=== PATIENT | male | born 1955 | race Caucasian/White ===

== ENCOUNTER 2018-03-29 09:06 | Inpatient (IN) | payer MEDICAID ==
[~2018-03-29] VITALS: Ht 162.6 cm; Wt 72.6 kg
[2018-03-29] MEDS ORDERED: SODIUM CHLORIDE 0.9% 1000ML BAG (SEPSIS BOLUS) IV ONE (10:45)
[2018-03-29 10:58] LABS: HEMATOCRIT. 38.6 % (42.0-52.0); HEMOGLOBIN. 13.5 g/dL (14.0-18.0); MEAN CORPUSCULAR HEMOGLOBIN 30.7 pg (28.0-32.0); MEAN CORPUSCULAR VOLUME 87.8 fL (80.0-94.0); PLATELET 134 x1000/uL (130-400); RED CELL DISTRIBUTION WIDTH 13.7 % (11.6-14.6)
[2018-03-29 11:09] LABS: CHLORIDE 105 mEq/L (98-107)
[2018-03-29 11:15] LABS: INR 1.2; PROTHROMBIN TIME 12.1 sec (9.1-11.1)
[2018-03-29] MEDS ORDERED: VANCOMYCIN 1 G PREMIX 200 ML IV ONE (11:45)
[2018-03-29] MEDS ORDERED: METRONIDAZOLE 500 MG PREMIX 100 ML IV ONE (11:45)
[2018-03-29] MEDS ORDERED: CEFTRIAXONE 1 G PREMIX 50 ML IV ONE (11:45)
[2018-03-29 11:58] LABS: PLATELET ESTIMATE NORMAL
[2018-03-29 13:05] LABS: CLARITY URINE CLOUDY (CLEAR); COLOR URINE ORANGE (YELLOW); KETONES URINE TRACE (NEGATIVE); LEUKOCYTE ESTERASE URINE TRACE (NEGATIVE); NITRITE URINE NEGATIVE (NEGATIVE); OCCULT BLOOD URINE 1+ (NEGATIVE); PROTEIN URINE 1+ (NEGATIVE); SPECIFIC GRAVITY URINE 1.019 (1.005-1.030)
[2018-03-29] MEDS ORDERED: CLONIDINE 0.1MG TABLET PO PRN ×2 (14:30→18:30)
[2018-03-29] MEDS ORDERED: DIAZEPAM 5 MG/ML 2ML CPJ IV PRN (14:30)
[2018-03-29] MEDS ORDERED: SODIUM CHLORIDE 0.9% 1,000 ML IV ONE (14:45)
[2018-03-29] MEDS ORDERED: CLINDAMYCIN XX SCH (16:00)
[2018-03-29] MEDS ORDERED: CEFTRIAXONE XX SCH (16:00)
[2018-03-29] MEDS ORDERED: VANCOMYCIN 1 G PREMIX 200 ML IV NR (18:00)
[2018-03-29] MEDS ORDERED: ONDANSETRON HCL 4MG/2ML INJ IV PRN (18:30)
[2018-03-29] MEDS ORDERED: IBUPROFEN 400MG TABLET PO PRN (18:30)
[2018-03-29] MEDS ORDERED: POTASSIUM CHLORIDE 20MEQ TABLET SR PO PRN (18:30)
[2018-03-29 22:30] VITALS: BP 110/66
[2018-03-30] VITALS: BP 93/53
[2018-03-30] MEDS ORDERED: DIAZEPAM 5 MG/ML 2ML CPJ IV PRN ×2 (01:45)
[2018-03-30] MEDS ORDERED: CLONIDINE 0.1MG TABLET PO PRN (01:45)
[2018-03-30] MEDS ORDERED: CLONIDINE 0.3MG TABLET PO PRN (01:45)
[2018-03-30] MEDS: SODIUM CHLORIDE 0.9% 1,000 ML IV SCH ×3 (03:25→18:44)
[2018-03-30] MEDS: CLINDAMYCIN 600MG PREMIX 50 ML IV SCH ×3 (03:31→18:44)
[2018-03-30 04:00] VITALS: BP 95/56
[2018-03-30 07:00] LABS: HEMATOCRIT. 33.5 % (42.0-52.0); HEMOGLOBIN. 11.6 g/dL (14.0-18.0); MEAN CORPUSCULAR HEMOGLOBIN 30.7 pg (28.0-32.0); MEAN PLATELET VOLUME 9.5 fl (7.4-10.4); PLATELET 129 x1000/uL (130-400); RED BLOOD CELL COUNT 3.77 mill/uL (4.7-6.1)
[2018-03-30 08:00] VITALS: BP 117/70
[2018-03-30 08:29] LABS: HEPATITIS B SURFACE ANTIGEN NEGATIVE
[2018-03-30] MEDS: CEFTRIAXONE 1 G PREMIX 50 ML IV SCH (08:34)
[2018-03-30] MEDS: MULTIVITAMINS,THER W-MINERALS TABLET PO SCH (08:35)
[2018-03-30] MEDS: METHADONE HCL 10MG TABLET PO SCH (11:25)
[2018-03-30 12:00] VITALS: BP 130/67
[2018-03-30 14:01] LABS: PLATELET ESTIMATE SLIGHTLY DECREASED
[2018-03-30 16:00] VITALS: BP 121/69
[2018-03-30 18:26] LABS: *AMPHETAMINES SCREEN URINE NEGATIVE (NEGATIVE); *BARBITURATES SCREEN URINE NEGATIVE (NEGATIVE); *BENZODIAZEPINES SCREEN URINE NEGATIVE (NEGATIVE)
[2018-03-30 18:27] LABS: *COCAINE SCREEN URINE NEGATIVE (NEGATIVE); CANNABINOID URINE SCREEN PRESUMTIVE POSITIVE (NEGATIVE); METHADONE URINE SCREEN PRESUMTIVE POSITIVE (NEGATIVE); OPIATES URINE SCREEN PRESUMTIVE POSITIVE (NEGATIVE); PHENCYCLIDINE URINE SCREEN NEGATIVE (NEGATIVE)
[2018-03-30 20:00] VITALS: BP 115/64
[2018-03-31] VITALS: BP 120/68
[2018-03-31] MEDS: CLINDAMYCIN 600MG PREMIX 50 ML IV SCH ×2 (02:32→11:45)
[2018-03-31] MEDS: SODIUM CHLORIDE 0.9% 1,000 ML IV SCH ×2 (02:32→09:00)
[2018-03-31 04:00] VITALS: BP 126/57
[2018-03-31 08:00] VITALS: BP 121/58
[2018-03-31 08:04] LABS: BASOPHILS % 0.3 % (0.0-2.0); EOSINOPHILS % 1.4 % (0.0-5.0); HEMATOCRIT. 33.2 % (42.0-52.0); HEMOGLOBIN. 11.6 g/dL (14.0-18.0); LYMPHOCYTES % 7.9 % (20.0-50.0); MEAN CORPUSCULAR HEMOGLOBIN 30.9 pg (28.0-32.0); MEAN CORPUSCULAR VOLUME 88.7 fL (80.0-94.0); MEAN PLATELET VOLUME 9.7 fl (7.4-10.4); MONOCYTES % 5.9 % (2.0-8.0); NEUTROPHILS % 84.5 % (40.0-76.0); PLATELET 120 x1000/uL (130-400); RED BLOOD CELL COUNT 3.75 mill/uL (4.7-6.1)
[2018-03-31] MEDS: CEFTRIAXONE 1 G PREMIX 50 ML IV SCH (08:58)
[2018-03-31] MEDS: METHADONE HCL 10MG TABLET PO SCH (08:59)
[2018-03-31] MEDS: MULTIVITAMINS,THER W-MINERALS TABLET PO SCH (08:59)
[2018-03-31 09:46] LABS: PHOSPHORUS 2.1 mg/dL (2.5-4.9)
[2018-03-31 10:06] LABS: HIV SCREEN 4G Non Reactive (Non Reactive)
[2018-03-31 11:17] VITALS: BP 120/60
== END 2018-03-31 11:45 | disposition home or self-care (01) | DRG 720 ==
LOC: ER 09:06 → 7WST 14:18 → EDBEDREQ 14:21 → EDBEDREQTM 14:21 → EDBEDREQSVC 14:21 → ENRESERV 20:23
PROVIDERS: ADMIT Emergency Medicine; ATTEND Emergency Medicine
DX: A41.9 Sepsis, unspecified organism (principal); E87.2 Acidosis; N17.9 Acute kidney failure, unspecified; E44.0 Moderate protein-calorie malnutrition; D69.59 Other secondary thrombocytopenia; J18.9 Pneumonia, unspecified organism; C22.9 Malignant neoplasm of liver, not specified as primary or secondary; B19.20 Unspecified viral hepatitis C without hepatic coma; D64.9 Anemia, unspecified; F12.90 Cannabis use, unspecified, uncomplicated; F17.210 Nicotine dependence, cigarettes, uncomplicated; K70.30 Alcoholic cirrhosis of liver without ascites; R65.20 Severe sepsis without septic shock; E78.5 Hyperlipidemia, unspecified; F11.23 Opioid dependence with withdrawal; Z96.651 Presence of right artificial knee joint; K74.60 Unspecified cirrhosis of liver; E86.0 Dehydration; I12.9 Hypertensive chronic kidney disease with stage 1 through stage 4 chronic kidney disease, or unspecified chronic kidney disease; N18.9 Chronic kidney disease, unspecified; Z68.27 Body mass index [BMI] 27.0-27.9, adult; Z85.05 Personal history of malignant neoplasm of liver; Z91.19 Patient's noncompliance with other medical treatment and regimen; Z86.19 Personal history of other infectious and parasitic diseases; Z79.4 Long term (current) use of insulin
CPT/HCPCS: 36415; 71045; 74176; 80048; 80053; 80305; 81003; 82550; 82962; 83605; 83690; 83735; 84100; 84145; 84484; 85025; 85610; 85651; 86140; 86803; 87040; 87086; 87106; 87340; 87389; 87804; 93005; 96365; 96366; 99291; J0696; J3370; J3490; J7030